=== PATIENT | male | born 1990 | race Caucasian/White ===

== ENCOUNTER 2021-06-20 22:06 | Emergency (ER) | payer SELFPAY ==
[2021-06-20 22:11] VITALS: BP 112/72; PULSE 75; TEMP 97.6; BMI 28.0
[2021-06-20] MEDS ORDERED: LIDOCAINE VISCOUS 2% ORAL/TOP 15 ML UNIT-DOSE CUP MM ONE (23:31)
[2021-06-20] MEDS ORDERED: MAG HYDROX/AL HYDROX/SIMETH 30 ML UNIT-DOSE CUP PO ONE (23:31)
[2021-06-20] MEDS ORDERED: FAMOTIDINE 10 MG TABLET PO ONE (23:31)
[2021-06-20] MEDS ORDERED: LIDOCAINE VISCOUS 2% ORAL/TOP 15 ML UNIT-DOSE CUP ONE (23:41)
[2021-06-20] MEDS ORDERED: FAMOTIDINE 10 MG TABLET ONE (23:42)
[2021-06-20] MEDS ORDERED: MAG HYDROX/AL HYDROX/SIMETH 30 ML UNIT-DOSE CUP ONE (23:42)
== END 2021-06-21 02:20 | disposition home or self-care (01) ==
LOC: JER 22:06
DX: R10.13 Epigastric pain (principal)
CPT/HCPCS: 76705-TC; 99284-25